=== PATIENT | female | born 1980 | race Caucasian/White ===

== ENCOUNTER 2021-02-17 02:22 | Emergency (ER) | payer BC ==
[2021-02-17] MEDS ORDERED: PLAQUENIL200 MG PO (02:35)
[2021-02-17] MEDS ORDERED: ZYRTEC ALLERGY10 MG PO (02:36)
[2021-02-17] MEDS ORDERED: NEURONTIN100 M1 PO (02:36)
[2021-02-17] MEDS ORDERED: MAG-OXIDE200 MG PO (02:36)
[2021-02-17] MEDS ORDERED: PROTONIX TR40 M1 PO (02:36)
[2021-02-17] MEDS ORDERED: TYLENOL325 M1 PO (02:37)
[2021-02-17] MEDS ORDERED: LEXAPRO5 MG PO (02:37)
[2021-02-17] MEDS ORDERED: ADULT ASPIRIN R81 MG PO (02:37)
[2021-02-17] MEDS ORDERED: RESTASIS 0.4 M0.4 M1 OU (02:37)
[2021-02-17] MEDS ORDERED: VITAMIN B122500 MC1 PO (02:38)
[2021-02-17] MEDS ORDERED: TYLENOL 325MG325 MG PO (02:38)
[2021-02-17] MEDS ORDERED: VITAMIN D310 MC3 PO (02:38)
[2021-02-17 03:02] LABS: BASO # 0.02 (0.02-0.10); EOS # 0.26 (0.04-0.40); EOS % 3.6 % (1.0-5.0); HEMATOCRIT 37.2 % (37.0-47.0); HEMOGLOBIN 12.2 g/dL (12.5-16.0); LYMPH# 2.32 (1.50-4.00); MEAN CELL VOLUME 99 fl (78-100); MEAN CORPUSCULAR HEMOGLOBIN 32 pg (27-31); MEAN CORPUSCULAR HGB CONC 33 g/dL (33-37); MONO # 0.58 (0.20-0.80); NEU # 4.01 (1.40-6.50); PLATELET COUNT 187 K/mm3 (130-400); RED BLOOD COUNT 3.76 M/mm3 (4.10-5.30); RED CELL DISTRIBUTION WIDTH 11.9 % (11.5-14.5); WHITE BLOOD COUNT 7.2 K/mm3 (4.8-10.8)
[2021-02-17 03:14] LABS: POTASSIUM 3.3 mmol/L (3.5-5.1); SODIUM 140 mmol/L (136-145)
[2021-02-17 03:15] LABS: CALCIUM 8.7 mg/dL (8.3-10.5)
[2021-02-17 03:16] LABS: GLUCOSE 94 mg/dL (65-105); TOTAL PROTEIN 6.8 g/dL (6.4-8.3)
[2021-02-17 03:17] LABS: CARBON DIOXIDE 21 mmol/L (22-29)
[2021-02-17 03:18] LABS: TOTAL BILIRUBIN 0.4 mg/dL (0.2-1.2)
[2021-02-17 03:21] LABS: D-DIMER 0.38 mg/L FEU (0.15-0.50)
[2021-02-17 03:22] LABS: AST-SGOT 18 U/L (5-34)
[2021-02-17 03:23] LABS: ALT/SGPT 10 U/L (0-55)
[2021-02-17 03:30] LABS: TROPONIN-I < 0.03 ng/mL (<0.030)
[2021-02-17 04:02] LABS: URINE WBC 0 /hpf (0-3)
[2021-02-17 04:20] LABS: URINE APPEARANCE CLEAR; URINE BILIRUBIN NEGATIVE (NEGATIVE); URINE BLOOD NEGATIVE (NEGATIVE); URINE COLOR YELLOW; URINE GLUCOSE NEGATIVE (NEGATIVE); URINE KETONE NEGATIVE (NEGATIVE); URINE LEUKOCYTE ESTERASE NEGATIVE (NEGATIVE); URINE NITRATE NEGATIVE (NEGATIVE); URINE PROTEIN(semi-quant) NEGATIVE (NEGATIVE); URINE UROBILINOGEN NORMAL (NORMAL)
[2021-02-17 04:23] LABS: MAGNESIUM 1.59 mg/dL (1.60-2.60)
[2021-02-17] MEDS ORDERED: POTASSIUM CHLO20 ME3 PO (06:04)
[2021-02-17 06:10] VITALS: BP 106/64
== END 2021-02-17 06:10 | disposition home or self-care (01) ==
LOC: ED 02:22
PROVIDERS: Family Medicine
DX: F41.9 Anxiety disorder, unspecified (principal); E87.6 Hypokalemia; E83.42 Hypomagnesemia; M25.511 Pain in right shoulder; G43.909 Migraine, unspecified, not intractable, without status migrainosus; M32.9 Systemic lupus erythematosus, unspecified; M79.7 Fibromyalgia; M35.00 Sjogren syndrome, unspecified; Z79.82 Long term (current) use of aspirin
CPT/HCPCS: J1885; J2060

== ENCOUNTER 2022-05-10 16:13 | Emergency (ER) | payer BC ==
[~2022-05-10 16:13] MED LIST: ADULT ASPIRIN R81 MG PO; LEXAPRO5 MG PO; MAG-OXIDE200 MG PO; NEURONTIN100 M1 PO; PLAQUENIL200 MG PO; POTASSIUM CHLO20 ME3 PO; PROTONIX TR40 M1 PO; RESTASIS 0.4 M0.4 M1 OU; TYLENOL 325MG325 MG PO; TYLENOL325 M1 PO; VITAMIN B122500 MC1 PO; VITAMIN D310 MC3 PO; ZYRTEC ALLERGY10 MG PO
[2022-05-10 16:19] VITALS: BP 110/79
[2022-05-10] MEDS ORDERED: PANTOPRAZOLE SO40 MG PO (16:21)
[2022-05-10] MEDS ORDERED: UBRELVY50 MG PO (16:22)
[2022-05-10] MEDS ORDERED: AIMOVIG AU140 MG/1 M SQ (16:22)
[2022-05-10] MEDS ORDERED: FOLIC ACID1 MG PO (16:22)
[2022-05-10] MEDS ORDERED: METHOTREXA25 MG/1 ML IJ (16:22)
[2022-05-10] MEDS ORDERED: NORCO 325 MG-51 TA1 PO (17:39)
[2022-05-10] MEDS ORDERED: SSD25 GM TP (17:39)
== END 2022-05-10 17:46 | disposition home or self-care (01) ==
LOC: ED 16:13
DX: T23.132A Burn of first degree of multiple left fingers (nail), not including thumb, initial encounter (principal); Z28.310 Unvaccinated for COVID-19; Z23 Encounter for immunization; X13.1XXA Other contact with steam and other hot vapors, initial encounter
CPT/HCPCS: 90715

== ENCOUNTER → 2024-08-09 | Outpatient (CLI) | payer BC ==
[~2024-08-09] MED LIST changes: +AIMOVIG AU140 MG/1 M SQ; +ALPRAZOLAM1 MG PO; +FOLIC ACID1 MG PO; +LUNESTA1 M1 PO; +METHOTREXA25 MG/1 ML IJ; +NORCO 325 MG-51 TA1 PO; +ONDANSETRON HYDR4 MG PO; +PANTOPRAZOLE SO40 MG PO; +PREMARIN 0.60.625 M1 PO; +SSD25 GM TP; +UBRELVY50 MG PO
== END ==
LOC: RAD 10:52
DX: S99.921A Unspecified injury of right foot, initial encounter (principal); X58.XXXA Exposure to other specified factors, initial encounter